=== PATIENT | female | born 1930 | race Caucasian/White ===

== ENCOUNTER 2017-02-08 10:00 | Emergency (ER) | payer OTHER, BC ==
[~2017-02-08] VITALS: Ht 165.1 cm; Wt 72.6 kg
[2017-02-08 10:00] VITALS: BP_SYST 163
[2017-02-08] MEDS ORDERED: DIPH-TET-PERTUS Vaccine 0.5 ML VIAL (ADACEL) I.M. ONE (10:30)
[2017-02-08] MEDS ORDERED: DIPH-TET Vacc 0.5 ML VIAL I.M. ONE (10:45)
[2017-02-08 11:33] VITALS: BP_SYST 135
== END 2017-02-08 11:33 | disposition home or self-care (01) ==
LOC: SED 10:00
DX: S01.112A Laceration without foreign body of left eyelid and periocular area, initial encounter (principal); I10 Essential (primary) hypertension; E78.00 Pure hypercholesterolemia, unspecified; Z85.038 Personal history of other malignant neoplasm of large intestine; Z88.0 Allergy status to penicillin; W01.0XXA Fall on same level from slipping, tripping and stumbling without subsequent striking against object, initial encounter; Y93.89 Activity, other specified; Y92.89 Other specified places as the place of occurrence of the external cause; Y99.8 Other external cause status
CPT/HCPCS: 90715; 99283